=== PATIENT | male | born 1950 | race Hispanic/Latino ===

== ENCOUNTER 2016-11-20 09:30 | Inpatient (IN) | payer MEDICARE, MEDICAID ==
[~2016-11-20] VITALS: Ht 152.4 cm; Wt 53.6 kg
[2016-11-20] VITALS (9 sets, daily range): BP systolic 82–122; BP diastolic 51–78; PULSE 63–76; RESP 13–20; O2SAT 96–100
[~2016-11-20 09:30] MED LIST: CEPH-512 PO
--- NOTE | 2016-11-20 09:56 | ED.REPORT ---
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 The pt has noticed increased bleeding from his nose into the back of his throat and mouth for the last month. This causes him to feel like he is choking when he falls asleep. He has also noticed epistaxis which was initially from the right nostril but is now from the left. The pt has been seen by ENT recently for these symptoms. The pt also complains of an itching rash on all of his extremities that has been present for the last two months, and hematemesis any time he vomits. He denies headache, recent vomiting, hematochezia or abdominal pain. Nursing Notes Stated Complaint: BLOOD IN THROAT OR MOUTH Chief Complaint: General Complaint Nursing Notes Reviewed: Yes Allergies: Coded Allergies: No Known Allergies (Verified Allergy, Unknown, 09/04/15) Scheduled Cephalexin (Keflex) 500 Mg Capsule 500 MG PO TID General Time Seen by MD: 09:56 Chief Complaint Other (Bleeding from nose into throat/mouth) Hx Obtained From: Patient Arrived By: Walk-in Onset Occurred: More than a week ago... 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 Smoking History Current Every Day Smoker Social History Patient was formerly for 12 years and is now and has 1 son of his own psychological issues secondary to alcohol and drug abuse in fetus. Alcohol Use: "Social" Drug Use: Denies drug use Ambulatory Status Cane Review of Systems Review of Systems Note: bleeding from nose into throat and mouth Respiratory: Denies: Non-productive cough GI: Reports: Hematemesis, Denies: Abdominal pain, Hematochezia, Vomiting Skin: Reports Itching, Reports Rash Neurologic: Denies: Headache Complete sys rev & neg: except as marked. Physical Exam Initial Vital Signs Vital Signs (First) Date Time Temp Pulse Resp B/P Pulse Ox O2 Delivery O2 Flow Rate FiO2 11/20/16 09:37 36.8 76 13 112/72 100 Room Air Initial VS: Reviewed General/Constitutional: Awake, Alert ENT: Airway patent, Mucous membranes moist Respiratory / Chest: Breath sounds NL, Breath sounds = bilat, No respiratory distress Head / Eyes: Normocephalic, PERRL, EOMI Neck: Supple, Full range of motion Cardiovascular: Heart rate NL, Regular rhythm, Heart sounds NL Abdomen: Atraumatic, Soft, Non-tender Skin: Color NL, No rash, Warm, Dry petechial rash inside mouth, on left biceps, right arm and bilateral legs Neurologic: Oriented X3, Speech NL, No motor deficits, No sensory deficits Back: Atraumatic, Full range of motion Upper Extremity / MS: Full range of motion, Neurologic intact, Vascular intact Lower Extremity / Pelvis / MS: Full range of motion, Neurologic intact, Vascular intact Psychiatric: Affect NL, Mood NL Interpretation & Diagnostics Lab Results Interpretation Result Diagram: 11/20/16 1030 11/20/16 1030 Test 11/20/16 10:30 11/20/16 12:08 White Blood Count 5.0th/mm3 (3.8-10.1) Red Blood Count 3.10mil/mm3 (4.40-5.80) Hemoglobin 9.2g/dL (13.8-17.2) Hematocrit 28.1% (41.0-50.0) Mean Corpuscular Volume 90.6fL (81-100) Mean Corpuscular Hemoglobin 29.7pg (27.0-35.0) Mean Corpuscular Hemoglobin Concent 32.7% (32.0-37.0) Red Cell Distribution Width 17.4% (12.3-15.4) Platelet Count 2bil/L (150-400) Neutrophils (%) (Auto) 64.0% (40-74) Lymphocytes (%) (Auto) 14.9% (14-46) Monocytes (%) (Auto) 16.1% (4-12) Eosinophils (%) (Auto) 3.2% (0-5) Basophils (%) (Auto) 0.6% (0-3) Prothrombin Time 10.4sec (8.1-12.5) Prothromb Time International Ratio 0.97ratio Sodium Level 135mEq/L (134-144) Potassium Level 4.0mEq/L (3.5-5.2) Chloride Level 100mEq/L (97-108) Carbon Dioxide Level 22mmol/L (18-29) Blood Urea Nitrogen 16mg/dL (8-27) Creatinine 1.05mg/dL (0.76-1.27) Estimat Glomerular Filtration Rate 75mL/min (>59) Glucose Level 96mg/dL (60-99) Calcium Level 8.5mg/dL (8.5-10.1) Total Bilirubin 0.7mg/dL (0.0-1.2) Aspartate Amino Transf (AST/SGOT) 16U/L (0-50) Alanine Aminotransferase (ALT/SGPT) 6U/L (0-44) Alkaline Phosphatase 115U/L (25-160) Total Protein 9.2g/dL (6.4-8.4) Albumin 3.1g/dL (3.4-5.0) X-Ray Chest Interpretation Chest Xray Interpretation: IMPRESSION: Interval widening of the upper mediastinum most consistent with lymphadenopathy. Lungs are clear. Dictated by: Alex Cruz M.D. on 11/20/2016 at 12:05 Approved by: Alex Cruz M.D. on 11/20/2016 at 12:06 Interpretation / Wet Read by: Interpret - Radiologist Re-Eval/Medical Decision Med Decision/Clinical Course Med Decision/Clinical Course: Critical thrombocytopenia requiring transfusion in the ER. Patient will be admitted. Review of systems fails to identify any other areas of bleeding such as intracranial hemorrhage or gastrointestinal bleeding. Source of Hx: Old records Re-Evaluation/Progress #1: Time of Eval: 11:31 Patient Status: Condition improved Re-Evaluation/Progress Note: Pt rechecked, whose platelets are 2. He denies headache, vomiting, hematochezia or abdominal pain. Re-Evaluation/Progress #2: Time of Eval: 11:46 Patient Status: Condition improved Re-Evaluation/Progress Note: Pt rechecked, who is comfortable. The diagnosis and plan for admission are discussed. The pt understands and agrees with the plan. All questions are addressed at this time. Consultation #1: Referral / Consult Name: Iza Luo MD Call Returned at: 11:51 Window/Distribution Clerk: Agrees with eval, Agrees with plan Note: Consulted with Dr. Adair, oncology, regarding pt's case. Dr. Adair recommends admission. Consultation #2: Call Returned at: 11:59 Note: Spoke with Dr. Madera, hospitalist, regarding pt's case. Dr. Madera agrees with the evaluation and agrees to admit the pt. Consultation #3: Referral / Consult Name: Emil Rubio MD Call Returned at: 12:01 Window/Distribution Clerk: Agrees with eval, Agrees with plan Note: Consulted with Dr. Rubio, pt's oncologist, regarding pt's case. Dr. Rubio recommends admission and agrees to consult. Counseled Regarding: Diagnosis, Lab results, Need for admission Discharge & Departure Impression: Primary Impression: Thrombocytopenia Disposition: ADMITTED TO HOSPITAL Discharge Condition All VS Reviewed: Yes Condition: Stable Referrals: Emil Rubio MD Crit Care Except Billable Proc Time Spent: 30-74 minutes (35 minutes) Services Performed: Patient management by me, Time spent at bedside, Reviewing test results, Reviewing imaging, Discussing patient care, Documentation in record Scribe Attestation Portions of this note were transcribed by Arnulfo Carmichael. I, Dr. Montana personally performed the history, physical exam and medical decision-making; I reviewed and confirmed the accuracy of the information in the transcribed note. copies to: Emil Rubio MD, Timothy S DO Nov 20, 2016 09:56 ARNULFO CARMICHAEL Nov 20, 2016 10:09
[2016-11-20 10:48] LABS: BASOPHILS % (AUTO) 0.6 % (0-3); EOSINOPHILS % (AUTO) 3.2 % (0-5); MONOCYTES % (AUTO) 16.1 % (4-12); Mean Corpuscular Hemoglobin 29.7 pg (27.0-35.0); Mean Corpuscular Volume 90.6 fL (81-100)
[2016-11-20 11:14] LABS: INR 0.97 ratio
[2016-11-20 11:17] LABS: Platelet Count 2 bil/L (150-400)
[2016-11-20] MEDS ORDERED: Ondansetron 2 mg/mL 2 mL Inj IVPUSH PRN (12:05)
[2016-11-20] MEDS ORDERED: Alum-Mag Hydrox-Simeth 30 mL Suspension PO PRN (12:05)
--- NOTE | 2016-11-20 12:08 | DRSVH ---
PROCEDURE: X-RAY CHEST ONE VIEW, PORTABLE ([id number]) INDICATIONS: cough TECHNIQUE: One view of the chest was acquired. COMPARISON: None. FINDINGS: Surgical changes and devices: None. Lungs and pleura: No pleural effusions or pneumothorax. Lungs are clear. Emphysema. Mediastinum: Interval widening of the mediastinum consistent with lymphadenopathy. Bones and chest wall: No suspicious bony lesions. Overlying soft tissues appear unremarkable. IMPRESSION: Interval widening of the upper mediastinum most consistent with lymphadenopathy. Lungs are clear. Dictated by: Alex Cruz M.D. on 11/20/2016 at 12:05 Approved by: Alex Cruz M.D. on 11/20/2016 at 12:06
[2016-11-20 12:38] LABS: D-Dimer 1.11 mg/L FEU (<0.50)
[2016-11-20 12:56] LABS: BASOPHILS % (AUTO) 1.2 % (0-3); EOSINOPHILS % (AUTO) 3.1 % (0-5); MONOCYTES % (AUTO) 15.2 % (4-12); Mean Corpuscular Hemoglobin 29.7 pg (27.0-35.0); Mean Corpuscular Volume 90.3 fL (81-100)
[2016-11-20 13:20] LABS: APPEARANCE,URINE CLEAR (CLEAR,HAZY); COLOR,URINE DARK YELLOW (YELLOW); OCCULT BLOOD,URINE LARGE (NEGATIVE); UROBILINOGEN,URINE NORMAL (NORMAL)
[2016-11-20 13:35] LABS: Platelet Count 3 bil/L (150-400)
[2016-11-20] MEDS ORDERED: 0.9% Sodium Chloride 250 ML ONE (14:06)
--- NOTE | 2016-11-20 16:51 | NUR ---
Admit/platelets Patient received to to room 1009 from ER for thrombocytopenia with a platelet count of 3 . Patient admitted with help from admit nurse . Patient received 1 pk platelets tolerated without any problems. Patient given Tylenol pre transfusion. Patient Slovak speaking so used nautical instrument mechanic for questions and to explain plan of care.
--- NOTE | 2016-11-20 17:30 | PCM.HPMED ---
Subjective Date of Service Nov 20, 2016 Primary Provider: Admitting Physician: Pablo Madera Primary Care Physician: Emil Rubio MD Attending Physician: Pablo Madera Admit Status: From the Emergency Department, Admit to Red Team Chief Complaint: Epistaxis History of Present Illness: Mr. Maya is a 66-year-old male with past medical history of BPH and metastatic poorly differentiated adenocarcinoma lung with metastases to liver and bone. Currently under chemotherapy treatment and followed by Dr. Rubio. He presents to the ED secondary to epistaxis 1 month or approximately since the time of starting chemotherapy. He reports his nosebleed to be a daily occurrence sometime lasting throughout the days with variations in blood flow from small to heavy. He also reports swallowing large amounts of blood over the last month which has caused him to subsequently vomit the swallowed blood back up. He also states that he has noticed occasional dark black stools which he attributes to swallowing large amounts of blood. He states that he has had some diarrhea on and off though no bright red blood is reported in his diarrhea. He denies any other sick contacts at home, denies chest pain, shortness of breath. States some abdominal pain periumbilical area which increases upon palpation which she attributes to ongoing diarrhea. Denies numbness or tingling in his extremities, lightheadedness or dizziness visual changes or headache. Platelets in the emergency department found to be 2, received 1 unit of platelets which increased his platelet count to 3. Dr. Rubio of oncology consult and agrees to see patient. Hemoglobin 8.3. Review of Systems: A comprehensive review of systems was conducted with the patient and found to be negative except as above in the history of present illness. Allergies Coded Allergies: No Known Allergies (Verified Allergy, Unknown, 11/20/16) Home Medications Home medications include cephalexin Reports chemotherapeutic medications. Exam Vital Signs & I/O Vital Sign- Last 8 Hours Date Time Temp Pulse Resp B/P Pulse Ox O2 Delivery O2 Flow Rate FiO2 11/20/16 16:33 36.5 64 17 92/55 100 Room Air 11/20/16 15:44 36.3 68 113/68 11/20/16 14:33 36.4 63 18 102/65 11/20/16 12:51 36.4 63 20 122/78 96 Room Air 11/20/16 12:32 36.5 65 20 107/67 100 Room Air Lab & Micro Results Laboratory Tests Test 11/20/16 10:30 11/20/16 12:08 11/20/16 12:11 11/20/16 12:35 White Blood Count 5.0th/mm3 (3.8-10.1) 4.2th/mm3 (3.8-10.1) Red Blood Count 3.10mil/mm3 (4.40-5.80) 2.79mil/mm3 (4.40-5.80) Hemoglobin 9.2g/dL (13.8-17.2) 8.3g/dL (13.8-17.2) Hematocrit 28.1% (41.0-50.0) 25.2% (41.0-50.0) Mean Corpuscular Volume 90.6fL (81-100) 90.3fL (81-100) Mean Corpuscular Hemoglobin 29.7pg (27.0-35.0) 29.7pg (27.0-35.0) Mean Corpuscular Hemoglobin Concent 32.7% (32.0-37.0) 32.9% (32.0-37.0) Red Cell Distribution Width 17.4% (12.3-15.4) 17.4% (12.3-15.4) Platelet Count 2bil/L (150-400) 3bil/L (150-400) Neutrophils (%) (Auto) 64.0% (40-74) 61.0% (40-74) Lymphocytes (%) (Auto) 14.9% (14-46) 18.1% (14-46) Monocytes (%) (Auto) 16.1% (4-12) 15.2% (4-12) Eosinophils (%) (Auto) 3.2% (0-5) 3.1% (0-5) Basophils (%) (Auto) 0.6% (0-3) 1.2% (0-3) Prothrombin Time 10.4sec (8.1-12.5) Prothromb Time International Ratio 0.97ratio Fibrinogen 288mg/dL (157-380) D-Dimer 1.11mg/L FEU (<0.50) Sodium Level 135mEq/L (134-144) Potassium Level 4.0mEq/L (3.5-5.2) Chloride Level 100mEq/L (97-108) Carbon Dioxide Level 22mmol/L (18-29) Blood Urea Nitrogen 16mg/dL (8-27) Creatinine 1.05mg/dL (0.76-1.27) Estimat Glomerular Filtration Rate 75mL/min (>59) Glucose Level 96mg/dL (60-99) Calcium Level 8.5mg/dL (8.5-10.1) Total Bilirubin 0.7mg/dL (0.0-1.2) Aspartate Amino Transf (AST/SGOT) 16U/L (0-50) Alanine Aminotransferase (ALT/SGPT) 6U/L (0-44) Alkaline Phosphatase 115U/L (25-160) Total Protein 9.2g/dL (6.4-8.4) Albumin 3.1g/dL (3.4-5.0) Urine Color Dark yellow (YELLOW) Urine Appearance Clear (CLEAR,HAZY) Urine pH 6.0 (5.0-8.0) Urine Specific [place] 1.020 (1.003-1.035) Urine Protein 30mg/dL (NEG,TRACE) Urine Glucose (UA) Negativemg/dL (NEGATIVE) Urine Ketones Negativemg/dL (NEGATIVE) Urine Occult Blood Large (NEGATIVE) Urine Nitrite Negative (NEGATIVE) Urine Bilirubin Negative (NEGATIVE) Urine Urobilinogen Normalmg/dL (NORMAL) Urine Leukocyte Esterase Negative (NEGATIVE) Urine RBC 11-50/hpf (0-2) Urine WBC 0-5/hpf (0-5) Urine Epithelial Cells Occasional/hpf (NONE-MOD) Urine Crystals None seen (NONE SEEN) Urine Bacteria Few/hpf (NONE-FEW) Urine Hyaline Casts Rare/lpf (NONE) Urine Granular Casts None seen (NONE SEEN) Urine Waxy Casts None seen (NONE SEEN) Urine Red Blood Cell Casts None seen (NONE SEEN) Urine White Blood Cell Casts None seen (NONE SEEN) Urine Mucus Present (None Seen) Urine Trichomonas None seen (NONE SEEN) Urine Yeast None (NONE SEEN) Urinalysis Comment None Urine Culture Reflexed Not indicated Test 11/20/16 17:37 11/20/16 19:20 White Blood Count 3.9th/mm3 (3.8-10.1) Red Blood Count 2.70mil/mm3 (4.40-5.80) Hemoglobin 8.0g/dL (13.8-17.2) Hematocrit 24.1% (41.0-50.0) Mean Corpuscular Volume 89.3fL (81-100) Mean Corpuscular Hemoglobin 29.6pg (27.0-35.0) Mean Corpuscular Hemoglobin Concent 33.2% (32.0-37.0) Red Cell Distribution Width 17.1% (12.3-15.4) Platelet Count 3bil/L (150-400) Neutrophils (%) (Auto) 54.4% (40-74) Lymphocytes (%) (Auto) 23.7% (14-46) Monocytes (%) (Auto) 16.6% (4-12) Eosinophils (%) (Auto) 3.8% (0-5) Basophils (%) (Auto) 0.5% (0-3) Result Diagram: 11/20/16 1737 11/20/16 1030 Review of Systems: Constitutional: Negative, except as otherwise mentioned in the history above. Ophthalmologic: Negative, except as otherwise mentioned in the history above. Cardiovascular: Negative, except as otherwise mentioned in the history above. Respiratory: Negative, except as otherwise mentioned in the history above. Gastrointestinal: Negative, except as otherwise mentioned in the history above. Genitourinary: Negative, except as otherwise mentioned in the history above. Musculoskeletal: Negative, except as otherwise mentioned in the history above. Neurological: Negative, except as otherwise mentioned in the history above. Psychiatric: Negative, except as otherwise mentioned in the history above. Hematologic/Lymphatic: Negative, except as otherwise mentioned in the history above. Allergic/Immunologic: Negative, except as otherwise mentioned in the history above. 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 External ears without defect. Pupils equal, round, and reactive to light and accommodation. There is free of blood. Anicteric sclerae, moist conjunctivae, and no lid lag. Oropharynx erythematous on roof of mouth moist mucosa no blood appreciated. Neck: Supple with full range of motion. No jugular venous distension. No bruits. Cardiovascular: Regular rate and rhythm with no murmurs, rubs, or gallops appreciated Pulmonary: Clear to auscultation bilaterally with no crackles, wheezes, or rhonchi. Normal respiratory effort with no use of accessory muscles. Abdomen: Bowel tones present. Soft, tender to palpation periumbilical area, nondistended. No hepatosplenomegaly or masses appreciated. No rebound tenderness, no guarding no rigidity Extremities: No clubbing, cyanosis, edema Skin: Normal temperature, turgor, and texture Neurological: Cranial nerves grossly intact. Psychiatric: Normal mood and affect. Alert and oriented to person, place, and time. Lab and Diagnostics Result Diagram: 11/20/16 1737 11/20/16 1030 X-Rays, CTs and MRIs X-RAY CHEST ONE VIEW, PORTABLE IMPRESSION: Interval widening of the upper mediastinum most consistent with lymphadenopathy. Lungs are clear. Dictated by: Alex Cruz M.D. on 11/20/2016 Assessment & Plan Mr. Maya is a 66-year-old male with past medical history of BPH and metastatic poorly differentiated adenocarcinoma lung with metastases to liver and bone, who was admitted for thrombocytopenia with resultant persistent epistaxis. Thrombocytopenia, present on admission. Ongoing Most likely secondary to recent chemotherapy Hemoglobin and hematocrit mildly low, white count normal Platelets fred from 2-3 after 1 unit received in the ED Repeat labs pending Transfuse additional unit if indicated Anemia. Present on admission. Ongoing Most likely secondary to persistent epistaxis Hemoglobin 9.2 on admission, 8.3 with repeat draw Asymptomatic, we will continue to monitor Metastatic adenocarcinoma of the lung. Present on admission. Ongoing Dr. Rubio hematology oncology consultation, recommendations appreciated Last chemotherapy received 3 weeks ago, patient states scheduled for chemotherapy treatment this week Nicotine dependence. Present on admission. Ongoing Patient current every day smoker Counseled patient on smoking cessation Patient refused nicotine patch Patient Status: Patient was admitted under inpatient status with expected length of stay greater than two midnights due to severity of presenting symptoms , risk of adverse event, and complexity of treatment plan. Pain Evaluation: Adequate Pain Control GI Prophylaxis: H2 shawn Resuscitation Status: CPR: Attempt Resuscitation Time spent 60 min Attending Statement The patient was seen and examined together with Dr. MANUEL on 11/20/16 and I agree with the history, exam and plan as outlined in the note above. ALECIA MANUEL DO Nov 20, 2016 15:29 Pablo Madera Nov 20, 2016 19:34
[2016-11-20 17:57] LABS: BASOPHILS % (AUTO) 0.5 % (0-3); EOSINOPHILS % (AUTO) 3.8 % (0-5); MONOCYTES % (AUTO) 16.6 % (4-12); Mean Corpuscular Hemoglobin 29.6 pg (27.0-35.0); Mean Corpuscular Volume 89.3 fL (81-100); NEUTROPHILS % (AUTO) 54.4 % (40-74)
[2016-11-20 18:04] LABS: Platelet Count 3 bil/L (150-400)
[2016-11-20 19:33] LABS: BASOPHILS % (AUTO) 0.9 % (0-3); EOSINOPHILS % (AUTO) 5.5 % (0-5); MONOCYTES % (AUTO) 15.8 % (4-12); Mean Corpuscular Hemoglobin 29.5 pg (27.0-35.0); Mean Corpuscular Volume 90.5 fL (81-100); NEUTROPHILS % (AUTO) 54.8 % (40-74)
[2016-11-20 19:40] LABS: Platelet Count 2 bil/L (150-400)
[2016-11-20] MEDS ORDERED: 0.9% Sodium Chloride 250 ML IV SCH (19:55)
--- NOTE | 2016-11-20 23:14 | NUR ---
Critical Platelet Count At 2200, lab called with a critical platelet count of 2. Previous platelet count was 3 prior to first unit of platelets administration. notified of new lab value, new order for additional 1 unit platelets which was initiated at 2155. Currently still infusing, pt tolerating well. ordered new platelet labs to be completed 20' post infusion and to page notify [facility] hospitalist with results. Pt will possibly need IV SoluMedrol and an additional unit of platelets, per , pending results. Addendum: 11/21/16 at 0107 by ANTONI GAINES RN Night Resident called with results of new labs per MD request. Platelet count up now to 13 from previous 2. New orders for 1000mg IV Solu-Medrol to be infused first and then another unit of platelets to follow per MD and resident. Addendum: 11/21/16 at 0549 by ANTONI GAINES RN 0500 labs complete, platelet count up to 16. Night resident notified. No new orders at this time, holding any additional platelet units at this time. Continue with IV Solu-Medrol per night resident. Pt received 3 units platelets on [facility] and 1 unit platelets in ED.
[2016-11-21] VITALS (11 sets, daily range): BP systolic 91–110; BP diastolic 51–67; PULSE 55–69; RESP 16–18; O2SAT 98
[2016-11-21 00:55] LABS: Mean Corpuscular Hemoglobin 29.5 pg (27.0-35.0); Mean Corpuscular Volume 92.1 fL (81-100)
[2016-11-21 00:56] LABS: Platelet Count 13 bil/L (150-400)
[2016-11-21] MEDS ORDERED: DEXTROSE 5% IV ONE (01:05)
[2016-11-21] MEDS ORDERED: 0.9% Sodium Chloride 250 ML IV ONE (01:05)
[2016-11-21] MEDS ORDERED: MATE IV ONE (01:05)
[2016-11-21] MEDS ORDERED: METHYLPRED SODIUM SUCC IV ONE (01:05)
[2016-11-21 01:15] LABS: BASOPHILS % (AUTO) 1.2 % (0-3); EOSINOPHILS % (AUTO) 5.5 % (0-5); NEUTROPHILS % (AUTO) 53.8 % (40-74)
[2016-11-21] MEDS: 0.9% Sodium Chloride 250 ML IV SCH ×2 (02:59→23:58)
[2016-11-21 05:33] LABS: BASOPHILS % (AUTO) 0.5 % (0-3); EOSINOPHILS % (AUTO) 1.8 % (0-5); MONOCYTES % (AUTO) 7.9 % (4-12); Mean Corpuscular Hemoglobin 29.3 pg (27.0-35.0); Mean Corpuscular Volume 92.1 fL (81-100); NEUTROPHILS % (AUTO) 73.5 % (40-74)
[2016-11-21 05:34] LABS: Platelet Count 16 bil/L (150-400)
[2016-11-21 05:50] LABS: Magnesium 2.1 mg/dL (1.6-2.6)
--- NOTE | 2016-11-21 07:48 | PROG NOTE ---
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 An expansile lesion at L3 was irradiated. He has associated back pain. He has been on recent treatment with pembrolizumab (immunotherapy). The most recent dose was administered on October 31, 2016, and is generally repeated once every three weeks. However, yesterday he presented to the [facility] Emergency Department with complaints of persistent epistaxis. He has had a blood in his mouth, which he says smells bad, and makes it difficult to eat. He had petechiae. Platelets were 2000 (normal 150,000 to 400,000). His hemoglobin was 7.8 with hematocrit of 23.9%, compared to a hematocrit of 34.4% on October 31, 2016. He felt a bit weak. He has received a total of 3 units of pooled platelets, and started methylprednisolone-1000 mg IV daily. No acute complaints this morning. He has been afebrile. OBJECTIVE: Vitals: T 36.6, P 66, R 16, BP 93/57. Weight is 53.6 kg (baseline 55 kg). HEENT: Conjunctivae slightly pale. Mucous membranes moist. No blood in the nares or oropharynx at this time. Nodes: No adenopathy in the neck or axilla. Chest is clear, no wheezes. Cardiac exam regular rate and rhythm with normal S1, S2. Abdomen soft, nontender. Active bowel tones. No splenomegaly or masses. Extremities: No edema, 2+ distal pulses. No calf tenderness. There is a few fine petechiae. LABORATORIES: WBC 3.8 with 73% neutrophils, hemoglobin 8.5, hematocrit 26.7%, platelets 16,000. Sodium 138, potassium 3.9, BUN 10, creatinine 0.81, glucose 107. AST 16, ALT 8, alkaline phosphatase 105, LDH 214, PT 10.4, INR 0.97. PTT 33.8, fibrinogen 288. D-dimer 1.11. ASSESSMENT AND PLAN: 1. Profound thrombocytopenia: Findings are likely due to an autoimmune complication of his immunotherapy with pembrolizumab. Maintain platelets greater than 10,000 or higher in the event of ongoing bleeding. Continue Solu-Medrol 1 gram IV daily for three days before beginning to taper. If this is insufficient, add IVIG infusion. Hold pembrolizumab. 2. 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 Cc: Dr. Chucky De La Cruz
--- NOTE | 2016-11-21 08:43 | PCM.PNMED ---
Subjective Date of Service Nov 21, 2016 Subjective Denies any new issues/complaints. No bleeding. Exam Vital Signs Vital Sign - Last Date Time Temp Pulse Resp B/P Pulse Ox O2 Delivery O2 Flow Rate FiO2 11/21/16 05:04 36.6 66 16 93/57 11/21/16 00:14 98 Room Air Intake and Output 11/20/16 11/20/16 11/21/16 Cumulative From/Thru 15:00 23:00 07:00 11/20/16 09:37 - 11/21/16 05:08 Intake Total 1672 ml 2451 ml 4123 ml Output Total 0 ml 400 ml 400 ml Balance 1672 ml 2051 ml 3723 ml Intake Oral 1320 ml 500 ml 1820 ml IV Total 85 ml 1385 ml 1470 ml Platelets 267 ml 566 ml 833 ml Output Urine Total 0 ml 400 ml 400 ml # Voids 1 3 4 # Bowel Movements 0 0 General: Alert, Cooperative, No Acute Distress Head: Normal Eyes: PERRLA, EOMI, Scleral Anicteric Nose: Mucous Membr Moist/[place] Mouth: Mucous Membr Moist/[place] Neck: Supple Chest & Lungs: Chest Wall Normal, Clear to auscultation & percussion Cardiovascular: Regular Rate/Rhythm Pulses: NL carotid, radial, femoral, DP, PT Abdomen: Non-tender, Non-distended, Normoactive bowel tones, Soft Extremities: No cyanosis/clubbing/edma bilat Neurological: Grossly Neurologically Intact, Normal Speech IVs and Medications Medications Reviewed: Medications were reviewed in detail Lab and Diagnostics Result Diagram: 11/21/16 0500 11/21/16 0500 X-Rays, CTs and MRIs Date of Service: 11/20/16 1147 PROCEDURE: X-RAY CHEST ONE VIEW, PORTABLE ([id number]) IMPRESSION: Interval widening of the upper mediastinum most consistent with lymphadenopathy. Lungs are clear. Dictated by: Alex Cruz M.D. on 11/20/2016 at 12:05 Approved by: Alex Cruz M.D. 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 # Acute profound thrombocytopenia, present on admission. Ongoing - Most likely secondary to recent chemotherapy - Post platelet transfusion on admission - Appreciate Heme/Onc consult. Will followup with recs - Maintain platelets greater than 10,000 or higher in the event of ongoing bleeding. - Continue Solu-Medrol 1 gram IV daily for three days (day 2) before beginning to taper. If this is insufficient, add IVIG infusion. - Hold pembrolizumab. # Acute epistaxis, present on admission. Resolved - Followup # Acute on chronic anemia. Present on admission. Stable. 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 # Nicotine dependence. Present on admission. Ongoing - Counseled patient on smoking cessation - Patient refused nicotine patch Dispo: 1-2 days pending above issues. GI Prophylaxis: H2 shawn VTE Mechanical Devices: Intermittant Pneumatic CD Resuscitation Status: CPR: Attempt Resuscitation Pablo Madera Nov 21, 2016 08:43
--- NOTE | 2016-11-21 09:07 | DRSVH ---
PROCEDURE: US ABDOMEN INDICATIONS: Thrombocytpoenia TECHNIQUE: Real-time scanning was performed of the abdominal and retroperitoneal organs, with image documentatio n. COMPARISON: None. FINDINGS: Liver length: 13.49 cm Wall Thickness: 2.40 mm CBD: 3.30 mm Right kidney length: 12.0 CM Left kidney length: Not scanned Aorta(Proximal): 1.68 cm Aorta(Mid): 1.35 cm Aorta(Distal): 1.22 cm RCIA: Obscured LCIA: Obscured Liver: Liver is normal in size and homogeneous in echotexture. Gallbladder: Ultrasound gallbladder negative Biliary ducts: Intrahepatic bile ducts are non-dilated. Extrahepatic bile duct caliber is normal. Normal is 6-7 mm or less in diameter, or 10 mm or less post-cholecystectomy. Pancreas: Visualized portions of the pancreas are sonographically normal. Kidneys: Right kidney is normal in size and echotexture. No hydronephrosis or nephrolithiasis. No s olid masses. Aorta: Visualized aorta is normal in caliber at less than 3 cm. Iliacs: Obscured. IVC: Intrahepatic inferior vena cava is patent. Miscellaneous: No free abdominal fluid. IMPRESSION: No sonographic evidence of acute cholecystitis. If there is persistent clinical concern f or cholecystitis recommend a HIDA scan. Dictated by: Alex Cruz M.D. on 11/21/2016 at 9:04 Approved by: Alex Cruz M.D. on 11/21/2016 at 9:06
[2016-11-21 14:15] LABS: BASOPHILS % (AUTO) 0.2 % (0-3); EOSINOPHILS % (AUTO) 0 % (0-5); MONOCYTES % (AUTO) 0.7 % (4-12); Mean Corpuscular Hemoglobin 29.5 pg (27.0-35.0); NEUTROPHILS % (AUTO) 89.1 % (40-74)
[2016-11-21 14:27] LABS: Platelet Count 4 bil/L (150-400)
--- NOTE | 2016-11-21 17:27 | NUR ---
spiritual care: pt request conversational visit. pt used mostly Malian and related story of his diagnosis and care/treatment, family life and other life stresses. supportive listening. Pt agreeable for [facility] visitor--occitan speaking visitor today.
--- NOTE | 2016-11-21 17:47 | NUR ---
Social Work: Initial Assessment/Multidisciplinary Rounds D: EMR reviewed. Please see Initial Assessment linked to this note for more information. Pt is a 66 year old male admitted [place] for thrombocytopenia per H&P. Pt's insurance is [employer]. Pt has no PCP listed and pt confirms this. Pt's oncologist is Emil Rubio. Pt discussed in multidisciplinary rounds, pt to receive IV steroids, possible d/c this weekend. SW met with pt at bedside to conduct initial assessment with assistance of color dipper. Pt is Monegasque speaking only. Pt was alert and oriented x3. SW explained role and wrote phone number on white board. SW did not provide [facility] Discharge Planning Checklist as pt is not able to read [facility]. Encouraged pt to contact SW for any discharge planning questions. Pt is experiencing homelessness in [place]. Pt used to live with his in [place] but this relationship ended and he has been living alone with no permanent housing. Sometimes he sleeps on a cousin's couch but does not like this. Pt reports that he was on a waitlist for an apartment in but it didn't work out. Pt is independent with all ADLs at baseline but states he does not walk well due to back pain. Pt uses no DME at baseline, and does not have DME available. Pt does not drive. Pt has no HH history. Pt has history at [facility] after last admission. Pt has no LTC or VA benefits. Pt has no DPOA on file. SW discussed housing for pt. Pt understands that he is likely to d/c back to homelessness. Pt is agreeable to any resources we can provide but they must be in Monegasque. Pt has no one to pick him up at d/c and will transport by walking at discharge. Pt states that he has tried [employer] in the past but has never worked with [facility]. Pt is agreeable to any resources that SW is able to provide. A: Pt who is independent at baseline and has the capacity for self-care. P: Pt anticipated to return to the community at discharge. SW will obtain resources for pt in Monegasque as available. Pt is agreeable to anything available. Pt has no one to pick him up at d/c and will transport by walking at discharge. SW will continue to follow for additional d/c planning needs. VERENA Yoon Addendum: 11/21/16 at 1757 by ANNABELLE CONNELL Amended: Links added.
--- NOTE | 2016-11-21 18:14 | NUR ---
Platelets Patient lab results returned with platelets at 4. Hospitalist notified. Order received to transfuse 1 unit platelets. Currently transfusing.
[2016-11-22] VITALS (8 sets, daily range): BP systolic 95–129; BP diastolic 58–74; PULSE 54–74; RESP 15–19; O2SAT 94–100
--- NOTE | 2016-11-22 05:15 | NUR ---
Refusing care/Pain Pt refused a.m. labs stating, "I chose, not you." and "no more pokes." On shift change yesterday, day RN informed me that pt was already informing staff that he no longer wanted to be "poked". Will pass along labs refusal to day RN. Explained to pt that labs help to guide his care and that his platelet count is critical. Pt has been cooperative with cares, otherwise. 1 unit of platelets finished at change of shift last night. Continue with IV steroids. Pt had c/o feeling sweaty once in the construction safety consultant, VSS, afebrile. Pt received PO Tylenol once this shift for c/o pain to right arm where he has been having lab draws.
--- NOTE | 2016-11-22 09:10 | PCM.PNMED ---
Subjective Date of Service Nov 22, 2016 Subjective He is very upset about all the blood draws and refuses to have blood draw today. He otherwise denies any other news issues/complaints Exam Vital Signs Vital Sign - Last Date Time Temp Pulse Resp B/P Pulse Ox O2 Delivery O2 Flow Rate FiO2 11/22/16 05:10 36.4 74 17 95/58 100 Room Air Intake and Output 11/21/16 11/21/16 11/22/16 Cumulative From/Thru 14:59 22:59 06:59 11/20/16 09:37 - 11/22/16 06:09 Intake Total 143 ml 1525 ml 854 ml 6645 ml Output Total 400 ml Balance 143 ml 1525 ml 854 ml 6245 ml Intake Oral 620 ml 800 ml 3240 ml IV Total 143 ml 697 ml 54 ml 2364 ml Platelets 208 ml 1041 ml Output Urine Total 400 ml # Voids 4 3 11 # Bowel Movements 0 0 0 Exam General: Alert, Cooperative, No Acute Distress Head: Normal Eyes: Scleral Anicteric Nose: Mucous Membr Moist/[place] Mouth: Mucous Membr Moist/[place] Neck: Supple Chest & Lungs: Chest Wall Normal, Clear to auscultation bilat Cardiovascular: Regular Rate/Rhythm Abdomen: Non-tender, Non-distended, Normoactive bowel tones, Soft Extremities: No cyanosis/clubbing/edema bilat Neurological: Grossly Neurologically Intact, Normal Speech IVs and Medications Medications Reviewed: Medications were reviewed in detail Lab and Diagnostics Result Diagram: 11/21/16 1353 11/21/16 0500 X-Rays, CTs and MRIs Date of Service: 11/20/16 1147 PROCEDURE: X-RAY CHEST ONE VIEW, PORTABLE ([id number]) IMPRESSION: Interval widening of the upper mediastinum most consistent with lymphadenopathy. Lungs are clear. Dictated by: Alex Cruz M.D. on 11/20/2016 at 12:05 Approved by: Alex Cruz M.D. 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 # Acute profound thrombocytopenia, present on admission. Ongoing - Most likely secondary to recent chemotherapy - Post platelet transfusion on admission and again on 11/21/16 - Appreciate Heme/Onc consult. Will followup with recs - Maintain platelets greater than 10,000 or higher in the event of ongoing bleeding. - Continue Solu-Medrol 1 gram IV daily for three days (day 2) before beginning to taper. If this is insufficient, add IVIG infusion. - Hold pembrolizumab. - Patient refusing further blood draw today. Will continue to observe clinically to ensure no sign of bleeding # Acute epistaxis, present on admission. Resolved - Followup # Acute on chronic anemia. Present on admission. 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 # Nicotine dependence. Present on admission. Ongoing - Counseled patient on smoking cessation - Patient refused nicotine patch on admission # Goals of care - He is OK with continuing with medical treatment and medications but says is tired of multiple blood draws and doesn't want to have any more blood draws at least for today Dispo: 1-2 days pending stable blood count, no further sign of bleeding and further recs by oncology GI Prophylaxis: H2 shawn VTE Mechanical Devices: Intermittant Pneumatic CD Resuscitation Status: CPR: Attempt Resuscitation Time spent 30 minutes with more than half face to face and with help of fast food manager answering questions and concerns. Pablo Madera Nov 22, 2016 09:10
--- NOTE | 2016-11-22 09:16 | PCM.ADCARE ---
Advance Care Planning Note Purpose of Encounter: goals of care regarding current thrombocytopenia and cancer Parties in Attendance: patient, nurse, certified court interpreter Decisional Capacity: Decisional Subjective: upset about multiple blood draws Objective: awake, alert, ox3 lungs CTA bilat Goals of Care Determinations: He is interested in continued medical treatment and medications but says wants a break from blood draws and feels tired and hurt of daily blood draws. He hopes to be able to go back home and resume outpatient treatment but says understands that he has advanced cancer and has guarded prognosis. Plan: Continue with current medical management in the hospital. Will hold off on further blood check today and continue with clinical observation for any sign of bleeding. Will attempt repeat blood draw tomorrow if patient agreeable. CODE STATUS: Full code Time Spent Adv.Care Plannin min Pablo Madera Nov 22, 2016 09:16
[2016-11-22] MEDS: MATE IV SCH (09:52)
[2016-11-22] MEDS: METHYLPRED SODIUM SUCC IV SCH (09:52)
[2016-11-22] MEDS: DEXTROSE 5% IV SCH (09:52)
[2016-11-22 11:44] LABS: BASOPHILS % (AUTO) 0.1 % (0-3); EOSINOPHILS % (AUTO) 0 % (0-5); MONOCYTES % (AUTO) 4.7 % (4-12); Mean Corpuscular Hemoglobin 29.4 pg (27.0-35.0); Mean Corpuscular Volume 92.7 fL (81-100); NEUTROPHILS % (AUTO) 82.9 % (40-74)
[2016-11-22 12:11] LABS: Platelet Count 4 bil/L (150-400)
--- NOTE | 2016-11-22 13:30 | NUR ---
POST HOSPITAL FOLLOW UP: Called [facility] and this patient can not be seen there due to change in contract with [facility]. [facility] is not accepting [facility] as of 09/20/16 Updated RELATIONSHIP COUNSELOR
[2016-11-22] MEDS ORDERED: PRIVIGEN IV SCH (14:00)
[2016-11-22] MEDS ORDERED: diphenhydrAMINE 25 mg Capsule PO ONE (14:10)
--- NOTE | 2016-11-22 15:20 | NUR ---
IVIG- IVIG infusion started at 1515 per orders and protocol. Titrating infusion and patient tolerating med without signs of adverse reaction. See flowsheet for vital signs.
--- NOTE | 2016-11-23 02:20 | NUR ---
Activity/pain Pt alert, oriented, and able to make needs known. No changes in LOC noted. Denies nausea, vomiting, or diarrhea. No c/o pain on this shift so far. Ambulate to bathroom with steady gait and stand by assist for safety and no safety issue noted. No s/s of bleeding noted. Pt told this LN that "no blood taking today, but tomorrow yes". So far no concerns and pt is resting comfortably in bed and call light w/in reach.
[2016-11-23 05:16] VITALS: BP 109/56; PULSE 52; RESP 16; O2SAT 98
[2016-11-23 08:41] LABS: BASOPHILS % (AUTO) 0.1 % (0-3); EOSINOPHILS % (AUTO) 0 % (0-5); MONOCYTES % (AUTO) 5.1 % (4-12); Mean Corpuscular Hemoglobin 29.6 pg (27.0-35.0); Mean Corpuscular Volume 93.7 fL (81-100); NEUTROPHILS % (AUTO) 85.4 % (40-74)
[2016-11-23 08:50] LABS: Platelet Count 7 bil/L (150-400)
--- NOTE | 2016-11-23 09:03 | PCM.PNMED ---
Subjective Date of Service Nov 23, 2016 Subjective Denies any new issues/complaints. No bleeding. Exam Vital Signs Vital Sign - Last Date Time Temp Pulse Resp B/P Pulse Ox O2 Delivery O2 Flow Rate FiO2 11/23/16 06:32 36.5 11/23/16 05:16 52 16 109/56 98 Room Air Intake and Output 11/22/16 11/22/16 11/23/16 Cumulative From/Thru 15:00 23:00 07:00 11/20/16 09:37 - 11/23/16 05:54 Intake Total 1481 ml 820 ml 8946 ml Output Total 125 ml 525 ml Balance 1481 ml 695 ml 8421 ml Intake Oral 1200 ml 820 ml 5260 ml IV Total 281 ml 2645 ml Platelets 1041 ml Output Urine Total 125 ml 525 ml # Voids 4 2 17 # Bowel Movements 0 0 0 Exam General: Alert, Cooperative, No Acute Distress Head: Normal Eyes: Scleral Anicteric Nose: Mucous Membr Moist/[place] Mouth: Mucous Membr Moist/[place] Neck: Supple Chest & Lungs: Chest Wall Normal, Clear to auscultation bilat Cardiovascular: Regular Rate/Rhythm Abdomen: Non-tender, Non-distended, Normoactive bowel tones, Soft Extremities: No cyanosis/clubbing/edema bilat Neurological: Grossly Neurologically Intact, Normal Speech IVs and Medications Medications Reviewed: Medications were reviewed in detail Lab and Diagnostics Result Diagram: 11/23/16 0830 11/21/16 0500 X-Rays, CTs and MRIs Date of Service: 11/20/16 1147 PROCEDURE: X-RAY CHEST ONE VIEW, PORTABLE ([id number]) IMPRESSION: Interval widening of the upper mediastinum most consistent with lymphadenopathy. Lungs are clear. Dictated by: Alex Cruz M.D. on 11/20/2016 at 12:05 Approved by: Alex Cruz M.D. 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 # Acute profound thrombocytopenia, present on admission. Ongoing - Most likely secondary to recent chemotherapy - Post platelet transfusion on admission and again on 11/21/16 - Appreciate Heme/Onc consult. Will followup with recs - Maintain platelets greater than 10,000 or higher in the event of ongoing bleeding. - Post Solu-Medrol 1 gram IV daily x 3 days - Continue with IVIG infusion started on 11/22/16 per hematology - Hold pembrolizumab. # Acute epistaxis, present on admission. Resolved - Followup # Acute on chronic anemia. Present on admission. Stable. 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 # Nicotine dependence. Present on admission. Ongoing - Counseled patient on smoking cessation - Patient refused nicotine patch on admission Dispo: 2-3 days pending improved plt count, no further sign of bleeding and further recs by oncology GI Prophylaxis: H2 shawn VTE Mechanical Devices: Intermittant Pneumatic CD Resuscitation Status: CPR: Attempt Resuscitation Pablo Madera Nov 23, 2016 09:03
[2016-11-23] MEDS ORDERED: 0.9% Sodium Chloride 100 ML ONE (10:15)
[2016-11-23] MEDS: DEXTROSE 5% IV SCH (10:17)
[2016-11-23] MEDS: MATE IV SCH (10:17)
[2016-11-23] MEDS: METHYLPRED SODIUM SUCC IV SCH (10:17)
[2016-11-23 12:47] VITALS: BP 125/72; PULSE 67; RESP 16; O2SAT 98
--- NOTE | 2016-11-23 14:02 | NUR ---
NUTRITION ASSESSMENT: ASSESS: 66 YO male presents to the ED secondary to epistaxis 1 month or approximately since the time of starting chemotherapy. He reports his nosebleed to be a daily occurrence, sometime lasting throughout the day with variations in blood flow from small to heavy. He also reports swallowing large amounts of blood over the last month which has caused him to subsequently vomit the swallowed blood. He also states that he has noticed occasional dark black stools which he attributes to swallowing large amounts of blood. He states that he has had some diarrhea on and off though no bright red blood is reported in his diarrhea. Status post platelet transfusion on admission and again on 11/21/16 for acute profound thrombocytopenia. PMHx: BPH and metastatic poorly differentiated adenocarcinoma lung with metastases to liver and bone. Currently under chemotherapy treatment and followed by Dr. Rubio. DIET: General. PO intake consistently 100% trays. LABS: Reviewed. Glu 107, Ca 8.3, LD 214, Alb 3.2. MEDICATIONS: Reviewed. NUTRITION FOCUSED PHYSICAL ASSESSMENT: GI symptoms / stool: No stool reported.Minor: 22. Skin Integrity: No issues reported. ANTHROPOMETRICS: Current Wt: 53.6 kg BMI: 23.0 kg/m2. Admit weight: 53.6 kg. Weight loss: 2.55% BW x 3 weeks. IBW: 50 kg (107% IBW) ESTIMATED NEEDS (CANCER): Calories: 1608 - 1876 kcal (30 - 35 kcal / kg BW) Protein 64 - 96 g protein (1.2 - 1.8 g / kg BW) NUTRITION DIAGNOSIS: 1) Increased nutrient needs related to lung cancer with mets, as evidenced by 2.55% weight loss x 3 weeks. INTERVENTION: 1) Will add supplements to trays. 2) Will offer outpatient nutrition consultation at the [facility] post discharge. MONITOR/EVALUATE: PO intake, labs, weight, nutritional status. Follow up per moderate nutrition risk guidelines.
--- NOTE | 2016-11-23 19:08 | NUR ---
Activity Patient up independent in room. Denies pain and nausea at this time. Patient repositions self for comfort. Call light and tray table within reach. Will continue to monitor patient hourly.
[2016-11-23 21:10] VITALS: BP 119/70; PULSE 60; O2SAT 98
--- NOTE | 2016-11-24 04:40 | NUR ---
General/d/c anticipation Pt is alert, oriented, and able to make needs known. Emirati speaking but able to make needs known in [place]ian. Anxious to go home and asking how much longer he has to stay at the hospital. This LN explained to pt about current medical issues with low platelets and target goal for his platelets count as noted in MD's noted. Pt was at ease after conversation with LN and verbalized understanding. Denies pain, N/V/D and no acute resp distress noted or reported. Care continues.
[2016-11-24 05:42] LABS: Mean Corpuscular Hemoglobin 29.8 pg (27.0-35.0); Mean Corpuscular Volume 93.6 fL (81-100); NEUTROPHILS % (AUTO) 85.6 % (40-74)
[2016-11-24 05:43] LABS: BASOPHILS % (AUTO) 0.1 % (0-3); EOSINOPHILS % (AUTO) 0 % (0-5)
[2016-11-24 05:45] LABS: Platelet Count 9 bil/L (150-400)
[2016-11-24 06:00] VITALS: BP 135/74; PULSE 53; RESP 16; O2SAT 99
--- NOTE | 2016-11-24 09:55 | PCM.PNMED ---
Subjective Date of Service Nov 24, 2016 Subjective Denies any new issues/complaints. No bleeding. Exam Vital Signs Vital Sign - Last Date Time Temp Pulse Resp B/P Pulse Ox O2 Delivery O2 Flow Rate FiO2 11/24/16 06:00 36.4 53 16 135/74 99 Room Air Intake and Output 11/23/16 11/23/16 11/24/16 Cumulative From/Thru 15:00 23:00 07:00 11/20/16 09:37 - 11/24/16 07:00 Intake Total 1190 ml 850 ml 81549 ml Output Total 200 ml 725 ml Balance 1190 ml 650 ml 22165 ml Intake Oral 824 ml 850 ml 6934 ml IV Total 366 ml 3011 ml Platelets 1041 ml Output Urine Total 200 ml 725 ml # Voids 2 3 22 # Bowel Movements 0 0 0 Exam General: Alert, Cooperative, No Acute Distress Head: Normal Eyes: Scleral Anicteric Nose: Mucous Membr Moist/[place] Mouth: Mucous Membr Moist/[place] Neck: Supple Chest & Lungs: Chest Wall Normal, Clear to auscultation bilat Cardiovascular: Regular Rate/Rhythm Abdomen: Non-tender, Non-distended, Normoactive bowel tones, Soft Extremities: No cyanosis/clubbing/edema bilat Neurological: Grossly Neurologically Intact, Normal Speech IVs and Medications Medications Reviewed: Medications were reviewed in detail Lab and Diagnostics Result Diagram: 11/24/1651111/24/16 0512 X-Rays, CTs and MRIs Date of Service: 11/20/16 1147 PROCEDURE: X-RAY CHEST ONE VIEW, PORTABLE ([id number]) IMPRESSION: Interval widening of the upper mediastinum most consistent with lymphadenopathy. Lungs are clear. Dictated by: Alex Cruz M.D. on 11/20/2016 at 12:05 Approved by: Alex Cruz M.D. 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 # Acute profound thrombocytopenia, present on admission. Ongoing - Most likely secondary to recent chemotherapy - Post platelet transfusion on admission and again on 11/21/16 - Appreciate Heme/Onc consult. Will followup with recs - Maintain platelets greater than 10,000 or higher in the event of ongoing bleeding. - Post Solu-Medrol 1 gram IV daily x 3 days without significant improvement - IVIG infusion started on 11/22/16 per hematology. Will followup with further recommendations regarding additional therapy. - Hold pembrolizumab. # Acute epistaxis, present on admission. Resolved - Followup # Acute on chronic anemia. Present on admission. Stable. 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 # Nicotine dependence. Present on admission. Ongoing - Counseled patient on smoking cessation - Patient refused nicotine patch on admission Dispo: 1-2 days pending improved plt count, no further sign of bleeding and further recs by oncology GI Prophylaxis: H2 shawn VTE Mechanical Devices: Intermittant Pneumatic CD Resuscitation Status: CPR: Attempt Resuscitation Pablo Madera Nov 24, 2016 09:55
[2016-11-24 12:20] VITALS: BP 108/56; PULSE 56; RESP 16; O2SAT 98
--- NOTE | 2016-11-24 13:16 | NUR ---
IVIG Per telephone order from Dr Breaux, given pt another dose of IVIG exactly as previously given, order CBC w/diff for 11/25/16 AM; Dr Breaux will be in 11/25/16 to see pt, not today. Will let pt and MD [facility] Team Hospitalist know. Care ongoing.
[2016-11-24] MEDS ORDERED: diphenhydrAMINE 25 mg Capsule PO ONE (13:45)
[2016-11-24] MEDS ORDERED: PRIVIGEN IV ONE (14:15)
--- NOTE | 2016-11-24 17:53 | NUR ---
DERICK OPTICAL TECHNICIAN witnessed DERICK signature, DERICK explained with the help of [employer] Deep Tissue Massage Therapist services. Karen Dotson OPTICAL TECHNICIAN
--- NOTE | 2016-11-24 17:54 | NUR ---
Social Work- Continued D/C Planning Data: EMR reviewed. Pt is on day 4 of hospitalization. Pt discussed in multidisciplinary rounds, pt is not medically ready for d/c. SW met with pt at bedside to provide community resources booklet in South Korean. Booklet explained with assistance of Language Line Consulting Property Manager. SW to determine if [facility] is contracted with pt's [facility]. [facility] is not contracted as of September. Pt denied any unmet needs at this time. SW will continue to follow . Assessment: Pt who is independent at baseline with ADLs. Plan: Community resources provided to pt. SW to determine if [facility] is contracted with pt's [facility]. [facility] is not contracted as of September. Pt is likely to d/c back to the community, SW will continue to follow. VERENA Yoon
--- NOTE | 2016-11-24 20:05 | NUR ---
ASSESSMENT: Met Pt. in his room resting in bed at this time during initial assessment, denies pain or nausea or SOB. IVIG infusion ending, infusion completed, Pt. S.L, tubing removed and discarded. Pt. A & O, pleasant and cooperative with care.
[2016-11-24 20:35] VITALS: BP 119/71; PULSE 66; RESP 18; O2SAT 97
[2016-11-25 05:51] VITALS: BP 97/56; PULSE 61; RESP 16; O2SAT 98
[2016-11-25 06:23] LABS: Mean Corpuscular Hemoglobin 29.8 pg (27.0-35.0); Mean Corpuscular Volume 93.5 fL (81-100)
[2016-11-25] MEDS ORDERED: Methylpred Sodium Succ Inj 1,000 MG in Dextrose 5% 250 ML IV ONE (07:55)
--- NOTE | 2016-11-25 08:00 | NUR ---
Critical Value Platelet Per lab Critical Value Platelet count 4; ran twice. Oncology, Hospitalist and pt made aware. New orders to come; care ongoing.
--- NOTE | 2016-11-25 08:04 | PROG NOTE ---
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 An expansile lesion at L3 was irradiated. He has been on chemotherapy (immunotherapy) with pembrolizumab, most recently on October 31, 2016. He was hospitalized last week with persistent gingival bleeding and epistaxis. He has been treated with methylprednisolone, IVIG, and platelet transfusion. He has minimal gingival bleeding at this time. He complains of some suprapubic tenderness. OBJECTIVE: Vitals: T 36.6, P 61, R 16, BP 97/56. HEENT: Conjunctivae slightly pale. Mucous membranes moist. No oral lesions. Nodes no adenopathy in the neck or axilla. Chest clear. Cardiac exam: Regular rate and rhythm with normal S1, S2. Abdomen is soft. Mild suprapubic tenderness without rebound. No palpable masses or organomegaly. Extremities no edema, a few ecchymoses, but otherwise unremarkable. LABS: (November 24, 2016) WBC 17.5, hemoglobin 9.3, hematocrit 29.2%, platelets 9000. ASSESSMENT AND PLAN: 1. Immune-mediated thrombocytopenia: Decreased platelets are likely an autoimmune phenomena of his immunotherapy with pembrolizumab. He has received Solu-Medrol and IVIG infusions x2. Await current laboratory findings. If he is clinically stable, recommend a dosing of prednisone 60 mg daily for three days as an outpatient, then recheck CBC, differential, platelets, and BMP in clinic on , November 28, 2016. 2. Metastatic adenocarcinoma of the lung with liver and bone involvement: A and O immunotherapy is on hold, awaiting treatment of his immune-mediated thrombocytopenia. He is due for repeat imaging. Consider repeat CT imaging of the chest, abdomen, and pelvis prior to discharge. We will followup results when available.
[2016-11-25 08:05] LABS: BASOPHILS % (AUTO) 0 % (0-3); EOSINOPHILS % (AUTO) 1 % (0-5); MONOCYTES % (AUTO) 10 % (4-12); NEUTROPHILS % (AUTO) 67 % (40-74); Platelet Count 4 bil/L (150-400)
--- NOTE | 2016-11-25 08:29 | PCM.PNMED ---
Subjective Date of Service Nov 25, 2016 Subjective Denies any new issues/complaints. No bleeding. Exam Vital Signs Vital Sign - Last Date Time Temp Pulse Resp B/P Pulse Ox O2 Delivery O2 Flow Rate FiO2 11/25/16 05:51 36.6 61 16 97/56 98 Room Air Intake and Output 11/24/16 11/24/16 11/25/16 Cumulative From/Thru 15:00 23:00 07:00 11/20/16 09:37 - 11/25/16 06:42 Intake Total 677 ml 785 ml 79724 ml Output Total 725 ml Balance 677 ml 785 ml 59033 ml Intake Oral 677 ml 600 ml 8211 ml IV Total 185 ml 3196 ml Platelets 1041 ml Output Urine Total 725 ml # Voids 2 2 26 # Bowel Movements 1 1 Exam General: Alert, Cooperative, No Acute Distress Head: Normal Eyes: Scleral Anicteric Nose: Mucous Membr Moist/[place] Mouth: Mucous Membr Moist/[place] Neck: Supple Chest & Lungs: Chest Wall Normal, Clear to auscultation bilat Cardiovascular: Regular Rate/Rhythm Abdomen: Non-tender, Non-distended, Normoactive bowel tones, Soft Extremities: No cyanosis/clubbing/edema bilat Neurological: Grossly Neurologically Intact, Normal Speech IVs and Medications Medications Reviewed: Medications were reviewed in detail Lab and Diagnostics Result Diagram: 11/25/16 0600 11/24/16 0512 X-Rays, CTs and MRIs Date of Service: 11/20/16 1147 PROCEDURE: X-RAY CHEST ONE VIEW, PORTABLE ([id number]) IMPRESSION: Interval widening of the upper mediastinum most consistent with lymphadenopathy. Lungs are clear. Dictated by: Alex Cruz M.D. on 11/20/2016 at 12:05 Approved by: Alex Cruz M.D. 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 # Acute profound thrombocytopenia, present on admission. Ongoing - Most likely immune-mediated thrombocytopenia secondary to recent chemotherapy - Post platelet transfusion on admission and again on 11/21/16 - Appreciate Heme/Onc consult. Will followup with recs - Maintain platelets greater than 10,000 or higher in the event of ongoing bleeding. - Post Solu-Medrol 1 gram IV daily x 3 days without significant improvement - IVIG infusion started on 11/22/16 per hematology. Will followup with further recommendations regarding additional therapy. - Hold pembrolizumab. # Acute epistaxis, present on admission. Resolved - Followup # Acute on chronic anemia. Present on admission. Stable. 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 - CT imaging of the chest, abdomen, and pelvis to reassess cancer status given ongoing thrombocytopenia - Further followup as outpatient # Nicotine dependence. Present on admission. Ongoing - Counseled patient on smoking cessation - Patient refused nicotine patch on admission Dispo: 1-2 days pending improved plt count, no further sign of bleeding and further recs by oncology GI Prophylaxis: H2 shawn VTE Mechanical Devices: Intermittant Pneumatic CD Resuscitation Status: CPR: Attempt Resuscitation Pablo Madera Nov 25, 2016 08:29
[2016-11-25 08:35] VITALS: BP 128/75; PULSE 70; RESP 16; O2SAT 100
[2016-11-25] MEDS: predniSONE 20 mg Tablet PO SCH (09:21)
[2016-11-25 12:41] VITALS: BP 114/71; PULSE 69; RESP 18; O2SAT 99
[2016-11-25 13:28] VITALS: BP 143/93; PULSE 90
--- NOTE | 2016-11-25 13:28 | NUR ---
Stomache Pain/ N/V w/emesis Pt up to shower today; after shower found pt doubled over on bed in pain c/o 01/24 pain to LL quadrant of stomach followed by violent nausea with 100mls emesis, no blood noted. 8mg IV Zofran given pt more comfortable and pain subsiding. Per pt states, "never had pain like this before." Care ongoing.
--- NOTE | 2016-11-25 13:37 | NUR ---
Called [place] to schedule a PCP per PAEDIATRIC SURGEON. Appointment set with Dr. Maddy Cantor for December 26, with a 1345 check in and 1400 appointment time. -Updated PAEDIATRIC SURGEON
[2016-11-25 15:29] VITALS: BP 106/71; PULSE 65; O2SAT 98
--- NOTE | 2016-11-25 16:34 | DRSVH ---
PROCEDURE: CT CHEST, ABDOMEN AND PELVIS [facility] CONTRAST ([id number]) INDICATIONS: Restage lung cancer TECHNIQUE: After the administration of oral and intravenous contrast, 5 mm thick sections acquired from the lung apices to the symphysis. 5 mm coronal and sagittal reformats were performed, with additional 7 mm c oronal MIP reformats through the lungs. For radiation dose reduction, the following was used: autom ated exposure control, adjustment of mA and/or kV according to patient size. COMPARISON: Chest 11/20/2016; CT CAP 08/07/2016 FINDINGS: Image quality: Excellent. CHEST: Lungs and pleura: Upper lobe predominant centrilobular emphysema. Calcified granuloma right middle l obe anteriorly and soft tissue nodularity, possible lymph nodes at the base of the right middle lobe, anterior sulcus, unchanged. No pleural effusions or pneumothorax. Central and peripheral airways ap pear patent and normal in caliber. An area of atelectasis/infiltrate has developed in the superior se gment left lower lobe. This is indeterminate but could represent simple atelectasis, pneumonia or donna plasm. Mediastinum: Heart size is normal. No pericardial effusion. Mediastinal and right hilar adenopathy appears stable to slightly smaller such as on series 3/image 20, right pretracheal node measures 9 mm compared to 15 mm and node in the aortopulmonary window at that level measures 7 mm compared to 13 m m on prior. Calcified subcarinal lymph nodes are identified. Thoracic aorta and central pulmonary art eries are normal in size. Esophagus is normal in caliber. No hiatal hernia. Chest wall: Bilateral axillary lymph nodes there were borderline enlarged on prior exam are stable. N o supraclavicular adenopathy by size criteria. Thyroid gland appears normal. ABDOMEN: Solid organs: Liver and spleen are normal in size and enhancement. Numerous hypodensities scattered throughout the liver appear unchanged from prior study, most consistent with hepatic cysts, hemangiom as or treated metastases. There are indistinct subcapsular hypodensities in the posterior lateral mar gin of the spleen, series 3/image 49. Gallbladder is normal. Biliary system is non dilated. Pancrea s enhances normally. No adrenal nodules. Kidneys demonstrate normal size and enhancement, without h ydronephrosis. Peritoneum and bowel: Bowel loops demonstrate normal wall thickness and caliber. No free fluid or a ir. Nodes and vessels: No retroperitoneal or mesenteric adenopathy by size criteria. Aorta and inferior vena cava are normal in size. There is blood/contrast level in the IVC inferior to the inflow from t he renal veins, likely related to Valsalva, thrombus unlikely. Miscellaneous: No ventral hernias. PELVIS: Genitourinary: Bladder wall thickness is normal. Prostate is enlarged. Miscellaneous: No inguinal hernias or adenopathy. Bones: Sclerotic metastases at L2, L3 and L4 with chronic pathologic compression fractures of L3 and L4 are again noted. No new bone lesions are identified. Mild wedging deformities T6 and T7 appear unc hanged. IMPRESSION: 1. Overall stable examination with interval decrease in degree of mediastinal lymphadenopathy since p rior study. Liver lesions remain stable. 2. There is an area of atelectasis in the superior segment of the right lower lobe is indeterminate, correlation for possible pneumonia recommended. Followup with plain chest x-ray recommended. 3. Osseous metastases remain stable in appearance. No new lesions seen. Dictated by: Devonte Dos Santos M.D. on 11/25/2016 at 16:13 Approved by: Devonte Dos Santos M.D. on 11/25/2016 at 16:32
[2016-11-25 20:09] VITALS: BP 118/71; PULSE 73; O2SAT 98
--- NOTE | 2016-11-26 04:16 | NUR ---
Pain Pt c/o lower abdominal pain on a scale 5/10 x2 this shift and tylenol 975mg admin x2 with some relief reported. Denies N/V/D, resp distress and/or SOB. BT present x4. Will continue to monitor.
[2016-11-26 04:45] VITALS: BP 132/75; PULSE 60; RESP 17; O2SAT 98
[2016-11-26 08:14] LABS: BASOPHILS % (AUTO) 0.1 % (0-3); EOSINOPHILS % (AUTO) 0 % (0-5); MONOCYTES % (AUTO) 4.1 % (4-12); Mean Corpuscular Hemoglobin 29.6 pg (27.0-35.0); Mean Corpuscular Volume 92.2 fL (81-100); NEUTROPHILS % (AUTO) 86.4 % (40-74)
[2016-11-26 09:21] LABS: Platelet Count 14 bil/L (150-400)
[2016-11-26] MEDS ORDERED: PRED-508 PO (10:41)
--- NOTE | 2016-11-26 10:49 | PCM.DIMED ---
Discharge Instructions Date of Service Nov 26, 2016 Dates of Hospitalization Nov 20, 2016 at 12:30 Discharge Diagnosis Discharge Diagnosis # Acute profound thrombocytopenia, present on admission. Ongoing - Most likely immune-mediated thrombocytopenia secondary to recent chemotherapy - Post platelet transfusion on admission and again on 11/21/16 # Acute epistaxis, present on admission. Resolved # Acute on chronic anemia. Present on admission. Stable. # Metastatic adenocarcinoma (stage IV) of the lung with liver and bone involvement # Nicotine dependence. Present on admission. Diet Discharge Diet: No restrictions Activity Discharge Activity: No restrictions Call your provider Call your provider for: Fever or Chills, Shortness of breath, Bleeding, Chest pain Patient Instructions Patient Instructions Seek immediate medical attention if any new or worsening signs or symptoms occur. Follow-up plan 1. Followup with oncology (Dr. Rubio) on 11/28/16 at 8 AM 2. Followup with new primary care provider (Dr. Maddy Cantor) at [facility] on CHECK IN AT 1:45PM FOR A 2PM APPOINTMENT [facility] Follow-up Provider: Emil Rubio MD Provider: Maddy Cantor MD, Masoud Nov 26, 2016 10:48
--- NOTE | 2016-11-26 10:55 | PCM.DC.MED ---
Discharge Summary Date of Service Nov 26, 2016 Dates of Hospitalization Date of Hospital Admission Nov 20, 2016 at 12:30 Date of Discharge: Nov 26, 2016 Providers: Admitting Physician: Pablo Callejas Primary Care Physician: Emil Rubio MD Attending Physician: Pablo Callejas Diagnosis at Time of Discharge Diagnosis at Time of Discharge # Acute profound thrombocytopenia, present on admission. Ongoing - Most likely immune-mediated thrombocytopenia secondary to recent chemotherapy - Post platelet transfusion on admission and again on 11/21/16 # Acute epistaxis, present on admission. Resolved # Acute on chronic anemia. Present on admission. Stable. # Metastatic adenocarcinoma (stage IV) of the lung with liver and bone involvement # Nicotine dependence. Present on admission. Consultations 1. Oncology (Dr. Rubio) Procedures XRay, CTs & MRIs Date of Service: 11/20/16 1147 PROCEDURE: X-RAY CHEST ONE VIEW, PORTABLE ([id number]) IMPRESSION: Interval widening of the upper mediastinum most consistent with lymphadenopathy. Lungs are clear. Dictated by: Alex Cruz M.D. on 11/20/2016 at 12:05 Approved by: Alex Cruz M.D. on 11/20/2016 at 12:06 Brief History As noted in H&P by Dr. De La Cruz: Mr. Maya is a 66-year-old male with past medical history of BPH and metastatic poorly differentiated adenocarcinoma lung with metastases to liver and bone. Currently under chemotherapy treatment and followed by Dr. Rubio. He presents to the ED secondary to epistaxis 1 month or approximately since the time of starting chemotherapy. He reports his nosebleed to be a daily occurrence sometime lasting throughout the days with variations in blood flow from small to heavy. He also reports swallowing large amounts of blood over the last month which has caused him to subsequently vomit the swallowed blood back up. He also states that he has noticed occasional dark black stools which he attributes to swallowing large amounts of blood. He states that he has had some diarrhea on and off though no bright red blood is reported in his diarrhea. He denies any other sick contacts at home, denies chest pain, shortness of breath. States some abdominal pain periumbilical area which increases upon palpation which she attributes to ongoing diarrhea. Denies numbness or tingling in his extremities, lightheadedness or dizziness visual changes or headache. Platelets in the emergency department found to be 2, received 1 unit of platelets which increased his platelet count to 3. Dr. Rubio of oncology consult and agrees to see patient. Hemoglobin 8.3. Hospital Course # Acute profound thrombocytopenia, present on admission. Ongoing - Most likely immune-mediated thrombocytopenia secondary to recent chemotherapy - Post platelet transfusion on admission and again on 11/21/16 - Appreciate Heme/Onc consult. - Maintain platelets greater than 10,000 or higher in the event of ongoing bleeding. - Post Solu-Medrol 1 gram IV daily x 3 days without significant improvement - Post IVIG infusion on 11/22/16 per hematology. - Hold pembrolizumab. - Will d/c home with Prednisone 60mg daily for 2 more day prior to further followup at oncology clinic on 11/26 # Acute epistaxis, present on admission. Resolved # Acute on chronic anemia. Present on admission. Stable. # Metastatic adenocarcinoma (stage IV) of the lung with liver and bone involvement - Appreciate oncology consult. 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 - CT imaging of the chest, abdomen, and pelvis as noted above # Nicotine dependence. Present on admission. Ongoing - Counseled patient on smoking cessation - Patient refused nicotine patch on admission by day of discharge patient is insisting on being discharged noting that he feels "fine" and doesn't want to be in hospital any more. Exam Vital Signs (Last) Date Time Temp Pulse Resp B/P Pulse Ox O2 Delivery O2 Flow Rate FiO2 11/26/16 04:45 36.6 60 17 132/75 98 Room Air Exam General: Alert, Cooperative, No Acute Distress Head: Normal Eyes: Scleral Anicteric Nose: Mucous Membr Moist/[place] Mouth: Mucous Membr Moist/[place] Neck: Supple Chest & Lungs: Chest Wall Normal, Clear to auscultation bilat Cardiovascular: Regular Rate/Rhythm Abdomen: Non-tender, Non-distended, Normoactive bowel tones, Soft Extremities: No cyanosis/clubbing/edema bilat Neurological: Grossly Neurologically Intact, Normal Speech Test 11/20/16 10:30 11/20/16 12:08 11/20/16 12:11 11/20/16 12:35 Fibrinogen 288mg/dL (157-380) D-Dimer 1.11mg/L FEU (<0.50) Urine Color Dark yellow (YELLOW) Urine Appearance Clear (CLEAR,HAZY) Urine pH 6.0 (5.0-8.0) Urine Specific [place] 1.020 (1.003-1.035) Urine Protein 30mg/dL (NEG,TRACE) Urine Glucose (UA) Negativemg/dL (NEGATIVE) Urine Ketones Negativemg/dL (NEGATIVE) Urine Occult Blood Large (NEGATIVE) Urine Nitrite Negative (NEGATIVE) Urine Bilirubin Negative (NEGATIVE) Urine Urobilinogen Normalmg/dL (NORMAL) Urine Leukocyte Esterase Negative (NEGATIVE) Urine RBC 11-50/hpf (0-2) Urine WBC 0-5/hpf (0-5) Urine Epithelial Cells Occasional/hpf (NONE-MOD) Urine Crystals None seen (NONE SEEN) Urine Bacteria Few/hpf (NONE-FEW) Urine Hyaline Casts Rare/lpf (NONE) Urine Granular Casts None seen (NONE SEEN) Urine Waxy Casts None seen (NONE SEEN) Urine Red Blood Cell Casts None seen (NONE SEEN) Urine White Blood Cell Casts None seen (NONE SEEN) Urine Mucus Present (None Seen) Urine Trichomonas None seen (NONE SEEN) Urine Yeast None (NONE SEEN) Urinalysis Comment None Urine Culture Reflexed Not indicated Blood Smear Pathologist Review Test 11/21/16 05:00 11/24/16 05:12 11/25/16 06:00 11/26/16 08:00 Reticulocyte Count,Calculated 2.3% (0.6-2.6) Magnesium Level 2.1mg/dL (1.6-2.6) Total Bilirubin 0.6mg/dL (0.0-1.2) Aspartate Amino Transf (AST/SGOT) 16U/L (0-50) Alanine Aminotransferase (ALT/SGPT) 8U/L (0-44) Alkaline Phosphatase 105U/L (25-160) Lactate Dehydrogenase 214U/L (100-190) Total Protein 8.2g/dL (6.4-8.4) Albumin 3.2g/dL (3.4-5.0) Prothrombin Time 10.7sec (8.1-12.5) Prothromb Time International Ratio 1.00ratio Activated Partial Thromboplast Time 22.4sec (22.8-33.0) Band Neutrophils % 4% (1-5) Myelocytes % 1% (0-0) Nucleated Red Blood Cells 1/100 WBC (0-24) Hematology Comments Rbc White Blood Count 17.3th/mm3 (3.8-10.1) Red Blood Count 3.45mil/mm3 (4.40-5.80) Hemoglobin 10.2g/dL (13.8-17.2) Hematocrit 31.8% (41.0-50.0) Mean Corpuscular Volume 92.2fL (81-100) Mean Corpuscular Hemoglobin 29.6pg (27.0-35.0) Mean Corpuscular Hemoglobin Concent 32.1% (32.0-37.0) Red Cell Distribution Width 17.7% (12.3-15.4) Platelet Count 14bil/L (150-400) Neutrophils (%) (Auto) 86.4% (40-74) Lymphocytes (%) (Auto) 7.4% (14-46) Monocytes (%) (Auto) 4.1% (4-12) Eosinophils (%) (Auto) 0% (0-5) Basophils (%) (Auto) 0.1% (0-3) Sodium Level 136mEq/L (134-144) Potassium Level 4.8mEq/L (3.5-5.2) Chloride Level 99mEq/L (97-108) Carbon Dioxide Level 22mmol/L (18-29) Blood Urea Nitrogen 40mg/dL (8-27) Creatinine 0.89mg/dL (0.76-1.27) Estimat Glomerular Filtration Rate 91mL/min (>59) Glucose Level 114mg/dL (60-99) Calcium Level 8.9mg/dL (8.5-10.1) Discharge Medications Discharge Medications Prednisone (Deltasone) 20 Mg Tablet 60 MG PO DAILY Prescribed by: PABLO CALLEJAS MD Followup Plan Disposition: Home Follow-up plan 1. Followup with oncology (Dr. Rubio) on 11/28/16 at 8 AM 2. Followup with new primary care provider (Dr. Maddy Cantor) at [facility] on CHECK IN AT 1:45PM FOR A 2PM APPOINTMENT [facility] Discharge Diet: No restrictions Discharge Activity: No restrictions Patient Instructions Seek immediate medical attention if any new or worsening signs or symptoms occur. Follow-up Provider: Emil Rubio MD Provider: Maddy Cantor MD Time spent 35 min copies to: Emil Rubio MD; Maddy Cantor MD, Masoud Nov 26, 2016 10:55
[2016-11-26] MEDS: predniSONE 20 mg Tablet PO SCH (11:01)
--- NOTE | 2016-11-26 11:28 | NUR ---
Social Work- Readiness for Discharge Data: EMR reviewed. Pt is on day 6 of hospitalization. Pt discussed at bedside multidisciplinary rounds, pt is medically ready for d/c. SW informed ot (with assistance of airport operations manager) of appointment for primary care at [facility] in December, explained sliding scale fees if insurance is not accepted. Provided patient with written explanation of sliding scale fees in [place]. Confirmed that pt has [place] Resource Booklet as well. Pt requested that SPECIAL SERVICES COORDINATOR contact his son at discharge. Pt states that he will walk to his family's house a few blocks away at discharge. Pt reports that he stays there inconsistently but confirms that he does not have permanent housing. All updated and agreeable to plan. Assessment: Pt who is independent at baseline with ADLs. Plan: Community resources provided to pt. [facility] clinic appointment scheduled for December 26 at 1400. Information in d/c packet. SW to call pt's son at d/c. Pt to d/c to his family's home or back to the community. All updated and agreeable to plan. SW continues to follow until time of d/c. VERENA Yoon
[2016-11-26 11:43] VITALS: BP 167/76; PULSE 94; RESP 18; O2SAT 100
--- NOTE | 2016-11-26 13:19 | NUR ---
Social Work-Discharge Data: EMR reviewed. Pt is on day 6 of hospitalization. Pt to discharge today. Placed call to pt's son Lamin [phone] at patient's request and informed son that pt is discharging. Pts son agreeable and will call father later. Discharge orders are active. Pt reports that his family is going to pick him up and he is likely to be staying intermittently with local family. No additional d/c needs identified. Assessment: Pt who is independent at baseline with ADLs. Plan: Community resources provided to pt. [facility] clinic appointment scheduled for December 26 at 1400. Pt reports that his family is going to pick him up and he is likely to be staying intermittently with local family. No additional d/c needs identified. VERENA Yoon
--- NOTE | 2016-11-26 13:38 | NUR ---
N/V/discharge Patient seen this am after breakfast was very anxious requesting to go home . Patient felt like he would do better at home . Platelet count now up to 14 from 4. Had meeting with hospitalist who contacted Dr Rubio and permission for discharge agreed. Patient given am prednisone and approximately 45 minutes later patient leaning over to get dressed and felt nauseous and had emesis , was light headed and had increased abd pain . Pt agreed to stay for monitoring but then napped and was up in hallway ready to go home. Patient instructed he had to have transportation home as it was not safe for him to walk home approx 6 blocks. Patient spoke with family who agreed to pick patient up out front but could not come in as they had children in car. Pt given verbal and written discharge instructions as well as interpretation from fork lift truck operator. Patient agrees to come back to hospital if any bleeding noted.
== END 2016-11-26 13:30 | disposition home or self-care (01) | DRG 809 ==
LOC: SED 09:30 → OSC 12:30
PROVIDERS: ADMIT Internal Medicine; ATTEND Internal Medicine
PROC: 30233R1 Transfusion of Nonautologous Platelets into Peripheral Vein, Percutaneous Approach (ICD-10-PCS; principal; 2016-11-20)
PROC: 30233R1 Transfusion of Nonautologous Platelets into Peripheral Vein, Percutaneous Approach (ICD-10-PCS; 2016-11-21)
DX: D61.810 Antineoplastic chemotherapy induced pancytopenia (principal); C34.90 Malignant neoplasm of unspecified part of unspecified bronchus or lung; C78.7 Secondary malignant neoplasm of liver and intrahepatic bile duct; C79.51 Secondary malignant neoplasm of bone; F17.200 Nicotine dependence, unspecified, uncomplicated; N40.0 Benign prostatic hyperplasia without lower urinary tract symptoms; R04.0 Epistaxis; Z66 Do not resuscitate; I10 Essential (primary) hypertension; T45.1X5A Adverse effect of antineoplastic and immunosuppressive drugs, initial encounter